=== PATIENT | male | born 1945 | race Caucasian/White ===

== ENCOUNTER 2019-04-11 14:39 | Inpatient (IN) | payer MEDICARE ==
[~2019-04-11] VITALS: Ht 177.8 cm; Wt 74.8 kg
--- NOTE | 2019-04-11 14:51 | NUR ---
PT BIB [id number], BY-STANDER CALLED 911 BECAUSE HE WAS NOTED TO BE UNSTEADILY WALKING IN THE STREET, HAS ROMI'S CHOREA, PT IS AAOX1, NOT IN RESPIRATORY DISTRESS, HOOKED TO MONITOR, KEPT RESTED AND COMFORTABLE, WILL CONTINUE TO MONITOR.
--- NOTE | 2019-04-11 15:09 | NUR ---
PT SEEN AND EXAMINED BY
--- NOTE | 2019-04-11 15:23 | NUR ---
ER PHLEB AT BEDSIDE FOR BLOOD DRAWNED.
--- NOTE | 2019-04-11 15:23 | NUR ---
Jacqueline gan in [facility] - 04/11/19 at 1523 by ANG ER PHLEB AT [facility] FOR EVAL.
[2019-04-11 15:30] LABS: BASOPHILS % (AUTO) 0.5 % (0.0-2.0); HEMATOCRIT 38 % (39-51); HEMOGLOBIN 12.7 g/dL (13.5-17.5); LYMPHOCYTES # (AUTO) 1.2 /CMM (0.8-4.8); LYMPHOCYTES % (AUTO) 18.7 % (20.0-44.0); MEAN CORPUSCULAR HGB CONC 33 g/dl (31.0-36.0); MEAN CORPUSCULAR VOLUME 88 fL (80-96); MONOCYTES # (AUTO) 0.7 /CMM (0.1-1.30); MONOCYTES % (AUTO) 10.5 % (2.0-12.0); NEUTROPHILS # (AUTO) 4.5 /CMM (1.8-8.9); NEUTROPHILS % (AUTO) 67.3 % (43.0-81.0); PLATELET COUNT (AUTO) 197 /CMM (150-450); RED BLOOD CELL COUNT(AUTO) 4.29 MIL/uL (4.5-6.0); WHITE BLOOD COUNT (AUTO) 6.7 K/uL (4.3-11.0)
[2019-04-11 15:35] LABS: CALCIUM, SERUM 8.5 mg/dL (8.5-10.1); CARBON DIOXIDE 29 mmol/L (21-32); CHLORIDE 107 mmol/L (98-107); CREATININE 1.5 mg/dL (0.6-1.3); GLUCOSE 124 mg/dL (74-106); POTASSIUM 4.3 mmol/L (3.5-5.1); SODIUM SERUM 142 mmol/L (136-145); UREA NITROGEN, BLOOD 25 mg/dL (7-18)
[2019-04-11 15:42] LABS: ALANINE AMINOTRANSFERASE 16 U/L (12-78); ALBUMIN 3.3 g/dL (3.4-5.0); ALKALINE PHOSPHATASE 85 U/L (46-116); ASPARTATE AMINOTRANSFERASE 17 U/L (15-37); BILIRUBIN,DIRECT 0.1 mg/dL (0.0-0.2); BILIRUBIN,TOTAL 0.2 mg/dL (0.2-1.0); TOTAL PROTEIN, SERUM 6.9 g/dL (6.4-8.2)
[2019-04-11 15:44] LABS: ACETAMINOPHEN < 2 ug/ml (10-30); ALCOHOL, BLOOD < 3 mg/dL (0-0); SALICYLATE < 2.8 mg/dL (2.8-20.0)
--- NOTE | 2019-04-11 16:17 | NUR ---
MEDRECON PT DENIES HAVING ANY MEDICATION.
--- NOTE | 2019-04-11 16:45 | NUR ---
BED 307-2 REPORT WILL BE GIVEN TO NUSRAT
--- NOTE | 2019-04-11 16:53 | NUR ---
REPORT GIVEN TO KWAKU SILVERIO FOR ITZEL.
--- NOTE | 2019-04-11 16:54 | NUR ---
RECEIVED REPORT FROM SANJAY MCDANIEL RN.
[2019-04-11] MEDS ORDERED: MAGNESIUM HYDROXIDE 30 ML UDC PO PRN (17:00)
[2019-04-11] MEDS ORDERED: MAG HYDROX/AL HYDROX/SIMETH 30 ML UDC PO PRN (17:00)
[2019-04-11] MEDS ORDERED: TEMAZEPAM 15 MG CAPSULE PO PRN (17:00)
[2019-04-11] MEDS ORDERED: ACETAMINOPHEN 325 MG TABLET PO PRN (17:00)
[2019-04-11] MEDS ORDERED: HYDROCODONE/APAP 5/325MG 1 EACH TABLET PO PRN (17:00)
[2019-04-11] MEDS ORDERED: ONDANSETRON HCL/PF 4 MG/2 ML VIAL IVP PRN (17:00)
--- NOTE | 2019-04-11 17:01 | NUR ---
DRAWER IN DOBBY LOOM AT BEDSIDE FOR XRAY.
--- NOTE | 2019-04-11 17:15 | NUR ---
HAND PACKAGER NOTE PATIENT CAME IN FROM ER VIA GURNEY, PATIENT WALKED FROM HIS GURNEY TO HIS BED, VERY UNSTEADY. ALERT AND ORIENTED X4. WHEN ASKED IF HE KNOWS THE REASON WHY HE'S HERE, PATIENT STATED HE NEEDED A PLACE TO STAY BECAUSE HE'S HOMELESS. PATIENT ASKED FOR A URINAL, UO 50ML CLEAR AND YELLOW URINE. BELONGINGS LIST DONE BY THE METAL POLISHER. PATIENT CAME IN WITH A FOUL SMELL. NO WOUNDS, SKIN INTACT. HAS A RIGHT AC #20, WITH A NEW ORDER OF NS AT 125 ML/HR. NO COMPLAINS OF ANY PAIN NOR SOB AT THIS TIME. PATIENT ORIENTED TO HIS ROOM, TURNED TV ON. BED LOCKED AND IN LOWEST POSITION. CALL LIGHT WITHIN REACH. WILL CONT TO MONITOR
[2019-04-11] MEDS: IV NS 0.9% 1,000 ML IV PRN (18:06)
--- NOTE | 2019-04-11 18:47 | NUR ---
RN CLOSING NOTE PATIENT IN BED, AWAKE AND ALERT WATCHING TV. NO COMPLAINS OF ANY PAIN NOR SOB AT THIS TIME. NS RUNNING AT 125 ML/HR AT PATIENT'S RIGHT AC #20. CALLED [employer] FOR PATIENT'S DINNER. ADMITTING ORDERS IN AND CARRIED OUT. WILL ENDORSE TO NOC SHIFT FOR ITZEL
--- NOTE | 2019-04-11 19:00 | NUR ---
RN MS OPENING NOTES RECEIVED PATIENT IN BED AWAKE ALERT AND ORIENTED X4, ABLE TO MAKE NEEDS KNOWN ABLE TO CARRY ON CONVERSATION, RESPIRATIONS EVEN AND UNLABORED WITH EQUAL RISE AND FALL OF CHEST, DENIES ANY PAIN OR DISCOMFORT AT THIS TIME, RIGHT AC#20 G INTACT AND PATENT, NO REDNESS, NO INFILTRATION PRESENT, IVF RUNNING ORDERED, ORIENTED TO STAFF AND CALL LIGHT AND KEPT WITHIN REACH, SAFETY PRECAUTIONS IN PLACE, LOW BED AND LOCKED, HEAD OF BED ELEVATED FOR ASPIRATION PRECAUTIONS, URINAL AT BEDSIDE, ALL NEEDS ATTENDED AT THIS TIME, WILL CONTINUE TO MONITOR AND ATTEND TO NEEDS. AT THIS TIME REMAINS COMFORTABLE.
[2019-04-11 19:09] VITALS: BP 132/73
[2019-04-11 19:58] VITALS: BP 102/54
[2019-04-11 20:00] VITALS: BP 102/54
--- NOTE | 2019-04-11 22:12 | NUR ---
RN MS NOTES IV SITE INSERTED TO RIGHT FA #22 G , FOR IVF ADMINISTRATION. PATIENT UNABLE TO KEEP RIGHT ARM IN SAME POSITION OR STRAIGHT RESTRICTING IVF TO FLOW ORDERED, NOTED FREQUENTLY BENDING OF ARMS, IVF IS RUNNING ORDERED
[2019-04-12] MEDS: IV NS 0.9% 1,000 ML IV PRN ×2 (05:08→15:13)
--- NOTE | 2019-04-12 05:33 | NUR ---
RN MS NOTES PATIENT AGREED TO HAVE TO LAB DRAWN. LAB ATTEMPTED DURING PROCESS PATIENT THAN YELLED " STOP IT I DONT WANT IT" UNABLE TO COLLECT BLOOD FOR LAB DRAW PATIENT REFUSED X3 AT THIS TIME DESPITE EXPLAINING RISK AND BENEFITS.
--- NOTE | 2019-04-12 06:33 | NUR ---
RN MS CLOSING NOTES PATIENT IN BED AWAKE ALERT AND ORIENTED X4, ABLE TO MAKE NEEDS KNOWN ABLE TO CARRY ON CONVERSATION, RESPIRATIONS EVEN AND UNLABORED WITH EQUAL RISE AND FALL OF CHEST, DENIES ANY PAIN OR DISCOMFORT AT THIS TIME, RIGHT AC#20 G INTACT AND PATENT SL, RIGHT FA #22G INTACT AND PATENT,, NO REDNESS, NO INFILTRATION PRESENT, IVF RUNNING ORDERED, CALL LIGHT KEPT WITHIN REACH, SAFETY PRECAUTIONS IN PLACE, LOW BED AND LOCKED, HEAD OF BED ELEVATED FOR ASPIRATION PRECAUTIONS, URINAL AT BEDSIDE, FLUIDS OFFERED THROUGHOUT SHIFT, ALL NEEDS ATTENDED AT THIS TIME, WILL CONTINUE TO MONITOR AND ATTEND TO NEEDS. AT THIS TIME REMAINS COMFORTABLE WILL ENDORSE TO NEXT SHIFT.
--- NOTE | 2019-04-12 07:30 | NUR ---
MS RN OPENING NOTE PATIENT IN BED RESTING COMFORTABLY, WITH HOB ELEVATED. PATIENT IS ALERT AND ORIENTED X4. PATIENT VERBALIZES NEEDS WITH NEEDS ADDRESSED. PATIENT IN NO PAIN AT THIS TIME. PATIENT IN NO ACUTE DISTRESS. NO SOB NOTED. PATIENT BREATHING IS EVEN AND UNLABORED. PATIENT URINAL AT THE BEDSIDE. BED ALARM IS ON. SAFETY PRECAUTIONS IN PLACE. PATIENT BED IS LOCKED AND IN LOWEST POSITION. CALL LIGHT WITHIN REACH. WILL CONTINUE TO MONITOR.
[2019-04-12 08:00] VITALS: BP 143/79
[2019-04-12 09:05] LABS: BASOPHILS % (AUTO) 0.8 % (0.0-2.0); EOSINOPHILS % (AUTO) 3.1 % (0.0-6.0); HEMATOCRIT 44 % (39-51); HEMOGLOBIN 14.5 g/dL (13.5-17.5); LYMPHOCYTES # (AUTO) 1.3 /CMM (0.8-4.8); LYMPHOCYTES % (AUTO) 22.9 % (20.0-44.0); MEAN CORPUSCULAR HGB CONC 33 g/dl (31.0-36.0); MEAN CORPUSCULAR VOLUME 89 fL (80-96); MONOCYTES # (AUTO) 0.5 /CMM (0.1-1.30); MONOCYTES % (AUTO) 9.3 % (2.0-12.0); NEUTROPHILS # (AUTO) 3.7 /CMM (1.8-8.9); NEUTROPHILS % (AUTO) 63.9 % (43.0-81.0); PLATELET COUNT (AUTO) 114 /CMM (150-450); RED BLOOD CELL COUNT(AUTO) 4.93 MIL/uL (4.5-6.0); WHITE BLOOD COUNT (AUTO) 5.8 K/uL (4.3-11.0)
[2019-04-12 09:15] LABS: CALCIUM, SERUM 8.4 mg/dL (8.5-10.1); CARBON DIOXIDE 20 mmol/L (21-32); CHLORIDE 108 mmol/L (98-107); CREATININE 1.1 mg/dL (0.6-1.3); GLUCOSE 91 mg/dL (74-106); MAGNESIUM 1.9 mg/dL (1.8-2.4); PHOSPHORUS 3.2 mg/dL (2.5-4.9); POTASSIUM 4.4 mmol/L (3.5-5.1); SODIUM SERUM 139 mmol/L (136-145); UREA NITROGEN, BLOOD 18 mg/dL (7-18)
[2019-04-12 09:25] LABS: CHOLESTEROL 170 mg/dL (<200); HDL CHOLESTEROL 47 mg/dL (40-60); LDL 107 mg/dL (0-99); THYROID STIMULATING HORMONE 0.183 uIU/mL (0.358-3.74); TRIGLYCERIDES 98 mg/dL (30-150)
[2019-04-12 10:00] VITALS: BP 143/79
--- NOTE | 2019-04-12 11:31 | NUR ---
WOUND CARE CONSULT: PT PRESENTS WITH LEFT HIP ABRASION, PRESENT ON ADMISSION. PT IS CONTINENT. PT HAS JERKING MOVEMENTS OF LOWER EXTREMITIES AT TIMES. PEELING SKIN NOTED TO FEET WITH SKIN DISCOLORATION. WILL SEE PRN. IGNACIO IN AGREEMENT WITH PLAN OF CARE. Addendum: 04/12/19 at 1133 by MARIANELA GONZALES WNDNU Amended: Links added.
--- NOTE | 2019-04-12 14:07 | NUR ---
Social service consult requested by Dr. Hampton for homelessness. Pt. is a 74 year old male who was brought in by paramedics after a bystander called 911 because the patient is unable to assist himself with unsteady gait while at the street. 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 SW met with pt. bedside. Pt. is alert and oriented x 3. Pt. has involuntary movements. Pt. admits to being homeless since he moved from [place] March 25. Pt. has no family in [place]. Pt. has a sister in [place]. 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 stated, " to become an actor." The patient denies alcohol, tobacco, or illicit drug use. Pt stated, " I only drink water and coffee." Pt. ambulates with an unsteady gait. brand marketing manager Janneth is looking into SNF placement for the pt. since penitentiary placement is not appropriate.
[2019-04-12 16:00] VITALS: BP 141/74
--- NOTE | 2019-04-12 16:17 | NUR ---
MS RN NOTE PATIENT REFUSING WOUND CARE ORDERS TO LEFT HIP ABRASION. JUST KEPT CLEAN AND DRY BUT PATIENT REFUSES XEROFORM AND MEPILEX. OFFERED MULTIPLE TIMES AND EXPLAINED RISKS VS BENEFITS. PATIENT STILL REFUSED. PATIENT IN NO ACUTE DISTRESS. WILL CONTINUE TO MONITOR.
--- NOTE | 2019-04-12 19:00 | NUR ---
MS RN CLOSING NOTE PATIENT IN BED RESTING COMFORTABLY. PATIENT IN NO ACUTE DISTRESS. NO SOB NOTED. PATIENT BREATHING IS EVEN AND UNLABORED. PATIENT VERBALIZED NEEDS, NEEDS ADDRESSED. OFFERED TO PERFORM WOUND CARE MULTIPLE TIMES, PATIENT REFUSED. PATIENT KEPT CLEAN AND DRY. SAFETY PRECAUTIONS IN PLACE. PATIENT EXTREMITIES OFFLOADED MUCH PATIENT ALLOWED. URINAL AT THE BEDSIDE. BED ALARM IS ON. PATIENT BED IS LOCKED AND IN LOWEST POSITION. CALL LIGHT WITHIN REACH. ENDORSED CARE TO PM SHIFT.
--- NOTE | 2019-04-12 19:00 | NUR ---
RN MS OPENING NOTES RECEIVED PATIENT IN BED AWAKE ALERT AND ORIENTED X4, ABLE TO MAKE NEEDS KNOWN ABLE TO CARRY ON CONVERSATION, RESPIRATIONS EVEN AND UNLABORED WITH EQUAL RISE AND FALL OF CHEST, DENIES ANY PAIN OR DISCOMFORT AT THIS TIME, RIGHT AC#20 G AND RIGHT FA #22 G INTACT AND PATENT, NO REDNESS, NO INFILTRATION PRESENT, IVF RUNNING ORDERED, ORIENTED TO STAFF AND CALL LIGHT AND KEPT WITHIN REACH, SAFETY PRECAUTIONS IN PLACE, LOW BED AND LOCKED, HEAD OF BED ELEVATED FOR ASPIRATION PRECAUTIONS, URINAL AT BEDSIDE, ALL NEEDS ATTENDED AT THIS TIME, WILL CONTINUE TO MONITOR AND ATTEND TO NEEDS. AT THIS TIME REMAINS COMFORTABLE.
--- NOTE | 2019-04-12 20:00 | NUR ---
RN MS NOTES PATIENT STRINGLY REFUSED VITAL SIGNS X3 DESPITE EXPLANATION OF RISKS AND BENEFITS YELLED OUT " NO I DONT WANT TO LEAVE ME ALONE" PATIENT ASYMPTOMATIC BASED ON ASSESSMENT, WILL CONTINUE TO OFFER AND ENCOURAGE THROUGHOUT SHIFT.
[2019-04-13] MEDS: IV NS 0.9% 1,000 ML IV PRN ×2 (01:49→09:50)
--- NOTE | 2019-04-13 04:00 | NUR ---
RN MS NOTES PATIENT STILL REFUSED VITAL SIGNS. AT THIS TIME PATIENT AGREED TO BE CLEANSED BED BATH GIVEN , COMPLETE LINENS CHANGED, PATIENT REFUSED TO HAVE DIAPER OR ELIGIO PLACED, DESPITE EPISODE OF INCONTINENCE AND URINAL AT BEDSIDE, PATIENT STATES " I WILL USE THE URINAL NEXT TIME". PATIENT INSISTING ON REMOVAL OF IV SITES, NOTED PT REMOVED IV SITE TO RIGHT FA AND RIGHT AC IV SITE LEAKING. IV SITE REMOVED. NO INFILTRATION NO REDNESS PRESENT, PATIENT REFUSED TO HAVE NEW IV SITE INSERTED DESPITE EXPLANATION OF RISK AND BENEFITS AND IVF ADMINISTRATION, STATES" ILL JUST DRINK THE WATER".
--- NOTE | 2019-04-13 06:22 | NUR ---
RN MS CLOSING NOTES PATIENT IN BED AWAKE ALERT AND ORIENTED X4, ABLE TO MAKE NEEDS KNOWN ABLE TO CARRY ON CONVERSATION, RESPIRATIONS EVEN AND UNLABORED WITH EQUAL RISE AND FALL OF CHEST, DENIES ANY PAIN OR DISCOMFORT AT THIS TIME, NO IV SITE IN PLACE PATIENT STRONGLY REFUSED YELLING "NO" FOR REINSERTION. PATIENT ALSO REFUSED VS THROUGHOUT SHIFT AND ALSO REFUSED WOUND CARE ORDERED, ENCOURAGE REPOSITIONING THROUGH OUT SHIFT. CALL LIGHT KEPT WITHIN REACH, SAFETY PRECAUTIONS IN PLACE, LOW BED AND LOCKED, HEAD OF BED ELEVATED FOR ASPIRATION PRECAUTIONS, URINAL AT BEDSIDE AND FREQUENTLY OFFERED, FLUIDS ALSO OFFERED, ALL NEEDS ATTENDED AT THIS TIME, WILL CONTINUE TO MONITOR AND ATTEND TO NEEDS. AT THIS TIME REMAINS COMFORTABLE WILL ENDORSE FOR CONTINUITY OF CARE NO CHANGES THROUGHOUT SHIFT.
--- NOTE | 2019-04-13 08:00 | NUR ---
MS RN NOTES PATIENT IN BED RESTING. PATIENT ALERT, ORIENTED X3. DENIES ANY PAIN OR DISCOMFORT. PATIENT REFUSING ALL TREATMENT. PATIENT WITH NO IV ACCESS REFUSED, BRIANA MCKEON AWARE OF PATIENTS REFUSAL. PATIENT ALSO REFUSED VITAL SIGNS TO BE CHECKED ALSO HE REFUSES TO BE CHANGED. WILL TRY AGAIN LATER. WILL CONTINUE TO MONITOR.
--- NOTE | 2019-04-13 18:44 | NUR ---
MS RN NOTES PATIENT IN BED RESTING NO SOB OR ACUTE DISTRESS NOTED. PATIENT NONE COMPLIANT. WITH NO IV ACCESS. REFUSING CARE. WILL ENDORSE CARE TO PM SHIFT.
--- NOTE | 2019-04-13 19:30 | NUR ---
MS RN OPENING NOTE RECEIVED PATIENT IN BED. A/O X4. PATIENT TOLERATING ROOM AIR. RESPIRATIONS EVEN AND UNLABORED. DENIES SOB. DENIES PAIN AT THIS TIME. PATIENT REFUSES TO HAVE AN IV ACCESS. BED IS LOW AND LOCKED. CALL LIGHT WITHIN REACH. WILL CONTINUE TO MONITOR.
--- NOTE | 2019-04-13 20:00 | NUR ---
RN NOTES PT. REFUSED TO HAVE HIS V/S CHECKED
--- NOTE | 2019-04-14 06:32 | NUR ---
MS RN CLOSING NOTE PATIENT IS RESTING IN BED. A/O X4. PATIENT IS TOLERATING ROOM AIR. RESPIRATIONS ARE EVEN AND UNLABORED. NO SOB NOTED. DENIES PAIN AT THIS TIME. NO IV ACCESS. PATIENT REFUSED REINSERTION. SKIN KEPT CLEAN AND DRY. PATIENT REFUSED VITAL SIGNS TO BE TAKEN. IN NO APPARENT DISTRESS AT THIS TIME. BED IS LOW AND LOCKED, SIDE RAILS UP X2. CALL LIGHT WITHIN REACH. WILL ENDORSE TO DAY SHIFT FOR ITZEL.
--- NOTE | 2019-04-14 08:00 | NUR ---
MS RN NOTES PATIENT IN BED RESTING NO SOB OR ACUTE DISTRESS NOTED. PATIENT ALERT, ORIENTED X3. PATIENT NONE COMPLIANT. DENIES ANY PAIN OR DISCOMFORT. HE REFUSES HYGIENE CARE. REFUSES WOUND CARE. PATIENT TO BE DISCHARGED TO SNF TODAY. WILL CONTINUE TO MONITOR.
--- NOTE | 2019-04-14 14:30 | NUR ---
MS RN NOTES PATIENT REFUSED PICTURES OF SKIN AND OR WOUND CARE.
--- NOTE | 2019-04-14 15:05 | NUR ---
MS RN NOTES PATIENT DISCHARGED TO [facility] VIA EMT. PATIENT IN STABLE CONDITION. PATIENT ALLOWED VITAL SIGNS TO BE TAKEN BY PARAMEDICS : 103/63, PULSE 60, RESPIRATION 18, TEMP 98.3. DISCHARGE TEACHING PROVIDED VERBALIZED UNDERSTANDING. REPORT GIVEN TO APURVA AT SNF. ALL BELONGINGS ACCOUNTED FOR , BELONGING LISTS SIGNED. PATIENT TRANSFERRED VIA AMBULANCE WITH EMT.
== END 2019-04-14 15:05 | DRG 683 ==
LOC: ER 14:44 → MED 17:01
PROVIDERS: ADMIT Nurse Practitioner Acute Care; ATTEND Nurse Practitioner Acute Care
DX: N17.0 Acute kidney failure with tubular necrosis (principal); G10 Huntington's disease; E44.0 Moderate protein-calorie malnutrition; D63.8 Anemia in other chronic diseases classified elsewhere; Z59.0 Homelessness; R26.9 Unspecified abnormalities of gait and mobility; E86.9 Volume depletion, unspecified; I70.0 Atherosclerosis of aorta
CPT/HCPCS: 36415; 70450-TC; 71045-TC; 80048-TC; 80061-TC; 80076-TC; 83735-TC; 84100-TC; 84443-TC; 84484-TC; 85025-TC; 87081-TC; 97116-TC; 97530-TC; G0378; G0480; J7030